=== PATIENT | male | born 1975 | race Caucasian/White ===

== ENCOUNTER 2023-02-13 18:31 | Emergency (ER) | payer OTHER, SELFPAY ==
[2023-02-13 18:39] VITALS: BP 164/106; PULSE 85; RESP 18; O2SAT 99; BMI 28.1
--- NOTE | 2023-02-13 18:46 | ED_ITS ---
Documented by User: Agatha Kendall 02/13/23 19:30 HPI - General Adult General Chief complaint: Dental/Oral Stated complaint: Epitaxis x1 week Time Seen by Provider: 02/13/23 18:42 Source: patient Mode of arrival: walk-in Limitations: no limitations History of Present Illness HPI narrative: 47 year old male presents to the ED for epistaxis. He has been having intermittent episodes for the past week. Denies fever, chills, injury. Denies dizziness, SOB. Denies use of anticoagulants. Denies pain. Reports 7 episodes of bleeding today. Reports noting several clots today. Related Data Allergies Allergy/AdvReac Type Severity Reaction Status Date / Time No Known Drug Allergies Allergy Verified 02/13/23 18:39 Review of Systems ROS Constitutional Denies: fever or chills Ears, nose, mouth, and throat Reports: nose bleeds; Denies: throat pain, neck pain, ear pain or nasal congestion Cardiovascular Denies: chest pain Respiratory Denies: shortness of breath Gastrointestinal Denies: abdominal pain Neurological Denies: headache, weakness in extremities, lack of coordination or dizziness PFSH PFSH Social History Smoking status: Current every day smoker Exam Constitutional Vital Signs, click to edit/add: Last Vital Signs Pulse 85 02/13/23 18:39 Resp 18 02/13/23 18:39 BP 164/106 H 02/13/23 18:39 Pulse Ox 99 02/13/23 18:39 O2 Del Method Room Air 02/13/23 18:39 Common normals: no apparent distress and oriented x3 General appearance: cooperative; not ill appearing [facility] Common normals: normocephalic Face and sinus: normal facial exam Nose: epistaxis (No active epistaxis. Likely site of bleeding noted to right medial nare.) Mouth: oral and palatal mucosa normal, lip normal and tongue normal; no drooling Eye Common normals: conjunctivae normal and no scleral icterus Neck & C-Spine Common normals: supple Chest Chest: symmetrical chest wall rise Respiratory Common normals: normal respiratory effort Cardio Common normals: regular rate Course Vital Signs Vital signs: Vital Signs Pulse Rate 85 02/13/23 18:39 Respiratory Rate 18 02/13/23 18:39 Blood Pressure 164/106 H 02/13/23 18:39 Pulse Oximetry 99 02/13/23 18:39 Oxygen Delivery Method Room Air 02/13/23 18:39 Pulse Rate 85 02/13/23 18:39 Respiratory Rate 18 02/13/23 18:39 Blood Pressure 164/106 H 02/13/23 18:39 Pulse Oximetry 99 02/13/23 18:39 Oxygen Delivery Method Room Air 02/13/23 18:39 Medical Decision Making MDM Narrative Medical decision making narrative: Silver nitrate was utilized to cauterize an area in the right nare. He tolerated the procedure well. The patient did not have active bleeding here in the ED. Laboratory studies were pending. The patient did not want to wait in the ED for his test results. The benefits of staying and risks of leaving were explained to the patient. He declined to stay. He left AMA. Medical Records Medical records reviewed: Yes I reviewed the patient's medical records Lab Data Lab results reviewed: Yes I reviewed the patient's lab results Labs: Lab Results 02/13/23 Range/Units 19:04 WBC 8.4 (4.0-11.0) 10^3/uL RBC 3.82 L (4.70-6.10) 10^6/uL Hgb 13.4 L (14.0-18.0) g/dL Hct 39.5 L (42.0-54.0) % MCV 103.4 H (80.0-94.0) fL MCH 35.1 H (25.9-34.0) pg MCHC 33.9 (29.9-35.2) g/dL RDW 11.4 (11.0-15.0) % Plt Count 130 L (150-450) 10^3/uL MPV 11.4 (9.5-13.5) fL Neut % (Auto) 59.3 (43.0-75.0) % Lymph % (Auto) 24.6 (20.5-60.0) % [place] % (Auto) 14.1 H (1.7-12.0) % Eos % (Auto) 1.2 (0.9-7.0) % Baso % (Auto) 0.6 (0.2-2.0) % Neut # (Auto) 5.0 (1.4-6.5) 10^3/uL Lymph # (Auto) 2.1 (1.2-3.8) 10^3/uL [place] # (Auto) 1.2 H (0.3-0.8) 10^3/uL Eos # (Auto) 0.1 (0.0-0.7) 10^3/uL Baso # (Auto) 0.1 (0.0-0.1) 10^3/uL Abs Immat Gran (auto) 0.02 (0.00-0.03) 10^3/uL Imm/Tot Granulo (auto) 0.2 (0.0-0.5) % PT 11.4 (9.0-11.6) sec INR 1.08 APTT 28.2 (22.3-36.2) sec Sodium 132 L (136-145) mmol/L Potassium 3.6 (3.5-5.1) mmol/L Chloride 95 L (98-107) mmol/L Carbon Dioxide 28.3 (21.0-32.0) mmol/L Anion Gap 12.3 BUN 7.0 (7.0-18.0) mg/dL Creatinine 0.57 L (0.70-1.30) mg/dL Est GFR ( Amer) >60 (>=60) Est GFR (Non-Af Amer) >60 (>=60) BUN/Creatinine Ratio 12.3 Glucose 94 (74-106) mg/dL Calcium 9.4 (8.5-10.1) mg/dL Total Bilirubin 0.6 (0.2-1.0) mg/dL Direct Bilirubin 0.2 (0.0-0.2) mg/dL AST 76 H (15-37) U/L ALT 93 H (16-63) U/L Alkaline Phosphatase 80 (46-116) U/L Total Protein 8.6 H (6.4-8.2) g/dL Albumin 3.7 (3.4-5.0) g/dL Globulin 4.9 g/dL Albumin/Globulin Ratio 0.8 Discharge Plan Discharge Chief Complaint: Dental/Oral Clinical Impression: Left against medical advice, Epistaxis Patient Disposition: Left Against Medical Advice Time of Disposition Decision: 19:19 Condition: Undetermined Mode of Transportation: Private Vehicle Instructions: Against Medical Advice (ED) Stand Alone Forms: Portal Instructions Referrals: Physician,Non-Staff, MD [Primary Care Provider] - 1 week Documented by User: Mack Spence MD 02/13/23 19:37 HPI - General Adult General Chief complaint: Dental/Oral Stated complaint: Epitaxis x1 week Time Seen by Provider: 02/13/23 18:42 Related Data Allergies Allergy/AdvReac Type Severity Reaction Status Date / Time No Known Drug Allergies Allergy Verified 02/13/23 18:39 PFSH PFSH Social History Smoking status: Current every day smoker Exam Constitutional Vital Signs, click to edit/add: Last Vital Signs Pulse 85 02/13/23 18:39 Resp 18 02/13/23 18:39 BP 164/106 H 02/13/23 18:39 Pulse Ox 99 02/13/23 18:39 O2 Del Method Room Air 02/13/23 18:39 Course Vital Signs Vital signs: Vital Signs Pulse Rate 85 02/13/23 18:39 Respiratory Rate 18 02/13/23 18:39 Blood Pressure 164/106 H 02/13/23 18:39 Pulse Oximetry 99 02/13/23 18:39 Oxygen Delivery Method Room Air 02/13/23 18:39 Pulse Rate 85 02/13/23 18:39 Respiratory Rate 18 02/13/23 18:39 Blood Pressure 164/106 H 02/13/23 18:39 Pulse Oximetry 99 02/13/23 18:39 Oxygen Delivery Method Room Air 02/13/23 18:39 Medical Decision Making MDM Narrative Medical decision making narrative: Silver nitrate was utilized to cauterize an area in the right nare. He tolerated the procedure well. The patient did not have active bleeding here in the ED. Laboratory studies were pending. The patient did not want to wait in the ED for his test results. The benefits of staying and risks of leaving were explained to the patient. He declined to stay. He left AMA. Patient's case was discussed with myself and Dr. Al. Patient case was transitioned to Dr. Al at 1905. Lab Data Labs: Lab Results 02/13/23 Range/Units 19:04 WBC 8.4 (4.0-11.0) 10^3/uL RBC 3.82 L (4.70-6.10) 10^6/uL Hgb 13.4 L (14.0-18.0) g/dL Hct 39.5 L (42.0-54.0) % MCV 103.4 H (80.0-94.0) fL MCH 35.1 H (25.9-34.0) pg MCHC 33.9 (29.9-35.2) g/dL RDW 11.4 (11.0-15.0) % Plt Count 130 L (150-450) 10^3/uL MPV 11.4 (9.5-13.5) fL Neut % (Auto) 59.3 (43.0-75.0) % Lymph % (Auto) 24.6 (20.5-60.0) % [place] % (Auto) 14.1 H (1.7-12.0) % Eos % (Auto) 1.2 (0.9-7.0) % Baso % (Auto) 0.6 (0.2-2.0) % Neut # (Auto) 5.0 (1.4-6.5) 10^3/uL Lymph # (Auto) 2.1 (1.2-3.8) 10^3/uL [place] # (Auto) 1.2 H (0.3-0.8) 10^3/uL Eos # (Auto) 0.1 (0.0-0.7) 10^3/uL Baso # (Auto) 0.1 (0.0-0.1) 10^3/uL Abs Immat Gran (auto) 0.02 (0.00-0.03) 10^3/uL Imm/Tot Granulo (auto) 0.2 (0.0-0.5) % PT 11.4 (9.0-11.6) sec INR 1.08 APTT 28.2 (22.3-36.2) sec Sodium 132 L (136-145) mmol/L Potassium 3.6 (3.5-5.1) mmol/L Chloride 95 L (98-107) mmol/L Carbon Dioxide 28.3 (21.0-32.0) mmol/L Anion Gap 12.3 BUN 7.0 (7.0-18.0) mg/dL Creatinine 0.57 L (0.70-1.30) mg/dL Est GFR ( Amer) >60 (>=60) Est GFR (Non-Af Amer) >60 (>=60) BUN/Creatinine Ratio 12.3 Glucose 94 (74-106) mg/dL Calcium 9.4 (8.5-10.1) mg/dL Total Bilirubin 0.6 (0.2-1.0) mg/dL Direct Bilirubin 0.2 (0.0-0.2) mg/dL AST 76 H (15-37) U/L ALT 93 H (16-63) U/L Alkaline Phosphatase 80 (46-116) U/L Total Protein 8.6 H (6.4-8.2) g/dL Albumin 3.7 (3.4-5.0) g/dL Globulin 4.9 g/dL Albumin/Globulin Ratio 0.8 Discharge Plan Discharge Chief Complaint: Dental/Oral Clinical Impression: Left against medical advice, Epistaxis Patient Disposition: Left Against Medical Advice Time of Disposition Decision: 19:19 Condition: Undetermined Mode of Transportation: Private Vehicle Instructions: Against Medical Advice (ED) Stand Alone Forms: Portal Instructions Referrals: Physician,Non-Staff, MD [Primary Care Provider] - 1 week
[2023-02-13] MEDS: SILVER NITRATE APPLICATOR STICK 1 APPLIC TOPICAL (18:53)
[2023-02-13 19:13] LABS: Basophils Absolute Auto 0.1 10^3/uL (0.0-0.1); Basophils Percent Auto 0.6 % (0.2-2.0); Eosinophils Absolute Auto 0.1 10^3/uL (0.0-0.7); Eosinophils Percent Auto 1.2 % (0.9-7.0); Hematocrit 39.5 % (42.0-54.0); Hemoglobin 13.4 g/dL (14.0-18.0); Immature Granulocytes Abs Auto 0.02 10^3/uL (0.00-0.03); Immature Granulocytes Pct Auto 0.2 % (0.0-0.5); Lymphocytes Absolute Auto 2.1 10^3/uL (1.2-3.8); Lymphocytes Percent Auto 24.6 % (20.5-60.0); Mean Corpuscular HGB Conc 33.9 g/dL (29.9-35.2); Mean Corpuscular Hemoglobin 35.1 pg (25.9-34.0); Mean Corpuscular Volume 103.4 fL (80.0-94.0); Mean Platelet Volume 11.4 fL (9.5-13.5); Monocytes Absolute Auto 1.2 10^3/uL (0.3-0.8); Monocytes Percent Auto 14.1 % (1.7-12.0); Neutrophils Percent Auto 59.3 % (43.0-75.0); Platelet Count 130 10^3/uL (150-450); Red Blood Count 3.82 10^6/uL (4.70-6.10); Red Cell Distribution Width 11.4 % (11.0-15.0); White Blood Count 8.4 10^3/uL (4.0-11.0)
--- NOTE | 2023-02-13 19:15 | PC.NURSE ---
Nose bleed off and on. None at present.
--- NOTE | 2023-02-13 19:19 | PC.NURSE ---
Patient wanted to leave and not wait for labs. AMA signed
[2023-02-13 19:24] LABS: Alanine Aminotransferase 93 U/L (16-63); Albumin Globulin Ratio 0.8; Albumin Level 3.7 g/dL (3.4-5.0); Alkaline Phosphatase 80 U/L (46-116); Anion Gap 12.3; Aspartate Amino Transferase 76 U/L (15-37); BUN Creatinine Ratio 12.3; Bilirubin Direct 0.2 mg/dL (0.0-0.2); Bilirubin Total 0.6 mg/dL (0.2-1.0); Calcium 9.4 mg/dL (8.5-10.1); Carbon Dioxide 28.3 mmol/L (21.0-32.0); Chloride 95 mmol/L (98-107); Estimated GFR (African America >60 (>=60); Estimated GFR (Non-African Ame >60 (>=60); Globulin 4.9 g/dL; Glucose 94 mg/dL (74-106); Potassium 3.6 mmol/L (3.5-5.1); Sodium 132 mmol/L (136-145); Total Protein 8.6 g/dL (6.4-8.2)
[2023-02-13 19:26] LABS: INR 1.08; Partial Thromboplastin Time 28.2 sec (22.3-36.2); Prothrombin Time 11.4 sec (9.0-11.6)
--- OUTSIDE RECORDS SUMMARY | 2023-02-14 10:10 | XMS_ITS | CCD ---
Author Name Unknown Address [address] [place] [address] Organization [facility] Care Team Providers Care Thread Spooler Name Role Phone NO FAMILY, PHYSICIAN Primary Care Provider Unava ilable DO Cristina Crooks Emergency Provider Norma Butler Admitting Unavailable Norma Butler Attending Unavailable Norma Butler Admitting Unavailable Norma Butler Attending Unavailable Enrique Cam Referring Unavailable [facility] Primary Care Unavaila ble Cristina Crooks Admitting Unavailable Cristina Crooks Attending Unavailable NO FAMILY, PHYSICIAN Primary Care Unavailable Dr. Enrique Cam Attending Chery vailable Medications Current Medications Medication Drug Class(es) Dates Sig (Normalized) Sig (Original) lisinopril 10 mg oral tablet (1 source) Angiotensin Converting Enzyme Inhibitor Start: 07-17-2022 take 10 mg by mouth once daily Lisinopril Active 10 MG PO Daily July 17, 2022 12:00am Completed/Discontinued Medications Medication Drug Class(es) Dates Sig (Normalized) Sig (Original) diclofenac sodium 1 mg/ml ophthalmic solution (1 source) Nonsteroidal Anti-inflammatory Drug Start: 09-22-2017 End: 09-25-2017 take 1 drop(s) into the eye(s) every six hours Diclofenac Sodium Discontinued 2 DROPS OPHTHALMIC Q6H 5 September 22, 2017 12:00am September 25, 2017 12:02am tobramycin 3 mg/ml ophthalmic solution (1 source) Aminoglycoside Antibacterial Start: 09-22-2017 End: 09-27-2017 take 1 drop(s) into the eye(s) every three hours Tobramycin Discontinued 2 DROPS OPHTHALMIC Q3H 5 September 22, 2017 12:00am September 27, 2017 12:03am Problems Problem Classification Problem Date Documented Da te Episodic/Chronic Cardiac dysrhythmias (1 source) Palpitations; Translations: [Palpitations] Onset: 08-03-2022 Episodic Conditions associated with dizziness or vertigo (1 source) Dizziness and giddiness; Translations: [Dizziness and giddiness] Onset: 07-17-2022 Episodic Essential hypertension (3 sources) Hypertensive disorder; Translations: [Essential (primary) hypertension] Onset: 07-20-2022 07-17-2022 Chronic Nausea and vomiting (1 source) Nausea with vomiting, unspecified; Translations: [Nausea with vomiting, unspecified] Onset: 07-17-2022 Episodic Nonspecific chest pain (1 source) Other chest pain; Translations: [Other chest pain] Onset: 08-03-2022 Episodic Other non-traumatic joint disorders (1 source) Pain in right shoulder; Translations: [Pain in right shoulder] Onset: 08-03-2022 Episodic Results Test Name Value Interpretation Reference Range Facility [facility] echo transthoracicon [facility] echo transthoracic [place] [address] Echocardiogram Signed Patient: Kelly Foss MR#: [id number] 67 : 1975 Acct:[id number] Age/Sex: 46 / M ADM Date: 08/03/22 Loc: Room: Type: [facility] Attending Dr: JESSI Garza APRN Ordering Provider: Norma Butler APRN, NP-C Date of Service: 08/03/2211/18/1415 [facility] echo transthoracic: Primary hypertension;Other chest pain;Heart palpitations Copies to: Norma Butler APRN, NP-C Hassan M Ibrahim, MD, [facility] Weight: 190 lb Performed By: ELEAZAR Teresa BSA: 2.0 m2 BP: 141/100 mmHg HR: 80 Reason For Study: Primary hypertension;Other chest pain;Heart palpitations History: Hyperlipidemia,Hypertensio n,Smoker Interpretation Summary Ejection Fraction = 55-60%. The left ventricular size, thickness and function are normal The left ventricular wall motion is normal. A variety of Doppler measurements indicate impaired left ventricular relaxation, which is associated with grade I/IV or mild diastolic dysfunction. There is no prior echocardiogram noted for this patient. Procedure/Quality: A two-dimensional transthoracic echocardiogram with color flow and Doppler was performed. The study was technically good in quality. There is no prior echocardiogram noted for this patient. Left Ventricle: The left ventricular size, thickness and function are normal. Ejection Fraction = 55-60%. A variety of Doppler measurements indicate impaired left ventricular relaxation, which is associated with grade I/IV or mild diastolic dysfunction. The left ventricular wall motion is normal. Left Atrium: The left atrium appears normal in size. The atrial septum appears normal. Right Atrium: The right atrium appears normal in size. Right Ventricle: The right ventricular size, thickness and function are normal. Aortic Valve: The aortic valve is normal in structure and function. No aortic regurgitation is present. Mitral Valve: The mitral valve is normal in structure and function. There is trace mitral regurgitation. Tricuspid Valve: The tricuspid valve is normal in structure and function. No tricuspid regurgitation. Pulmonic Valve: The pulmonic valve is normal in structure and function. Arteries: The aortic root is normal size. Pericardium/Pleura: No pericardial effusion seen. There is no pleural effusion. IVC/Hepatic Viens: The inferior vena cava is normal in size, with a normal collapsibility index. Miscellaneous: No thrombus, vegetation or mass is seen. Measurements with Normals IVSd: 1.1 cm (0.7-1.1 cm)LVIDd: 4.8 cm (3.7-5.4 cm) LVPWd: 1.1 cm (0.7-1.1 cm)LVIDs: 3.1 cm (2.3-3.6 cm) LA dimension: 3.7 cm (2.3-4.0 cm)Ao root diam: 3.2 cm(2.0-3.6 cm) asc Aorta Diam: 3.2 cm(2.1-3.4cm) Doppler with Normals RVSP(TR): 23.4 mmHg (18-35mmHg) MV E max casper: 72.0 cm/sec(0.8-1.3m/s) MV A max casper: 82.3 cm/sec(0.0-0.0m/s) MV E/A: 0.88 (<1.5) MMode/2D Measurements Calculations RVDd: 2.8 cm FS: 35.1 % Ao root area: 7.8 [id number] ap4: 8.1 cm TAPSE: 2.1 cm EDV(Teich): EDV(MOD-sp4): RV S Casper: 108.0 ml 104.0 ml 21.4 cm/sec ESV(Teich): LVLs ap4: 6.7 cm 38.5 ml ESV(MOD-sp4): EF(Teich): 64.3 % 35.7 ml EF(MOD-sp4): 65.7 % __ SV(MOD-sp4): LAV(MOD-sp4): LA A2 area: 15.1 cm2 68.3 ml 39.9 ml LAV(MOD-sp2): LA A4 area: 16.5 cm2 31.7 ml LA length (vol): 5.5 cm LA vol: 38.2 ml LA vol index: 19.1 ml/m2 Doppler Measurements Calculations MV max P.0 mmHg E/E' lat: MR max casper: TV max P.5 228.5 cm/sec 18.0 mmHg E/E' med: MR max P.1 mmHg 8.0 __ TR max casper: 214.8 cm/sec TR max P.4 mmHg RAP systole: 5.0 mmHg Transcribed By: SCV Performed At: 08/03/22 1427 Signed By: Enrique Cam MD, FACC 08/03/22 1538 Normal [facility] STR cardiac stress/regularon 08-03-2022 STR cardiac stress/regular [facility] [address] Cardiac Stress Test Draft Patient: Kelly Foss MR#: [id number] 67 : 1975 Acct:[id number] Age/Sex: 46 / M ADM Date: 08/03/22 Loc: Room: Type: [facility] Attending Dr: Norma R. Butler WAREHOUSE PERSON, NET UI DEVELOPER-C Copies to: Ordering Provider: Norma Butler APRN, NP-C Date of Service: 08/03/22 STR/STR cardiac stress/regular: Primary hypertension;Other chest pain;Heart palpitations ORDERED BY: JESSI Broussard INDICATIONS: A 46-year-old patient with chest pain. Resting EKG revealed normal sinus rhythm with a rate of 80 beats per minute. Resting blood pressure 140/100 mmHg. The patient was exercised on a Mikie protocol for 7 minutes, achieving maximum heart rate 157 beats per minute, which represented 89% of predicted maximum heart rate and workload of 8.5 METS. Blood pressure chacha to 120/100 mmHg. The test ended due to legs fatigue. During exercise, no ischemic EKG changes were noted. The patient had no symptoms of chest pain, and there were no cardiac arrhythmias induced by exercise. The patient demonstrated reasonable heart rate response to exercise with normal heart rate recovery and achievement of Hurst treadmill score of 7+, which is favorable. CONCLUSION: 1. Normal exercise tolerance test after completing 7 minutes of Mikie protocol, achieving 89% of predicted maximum heart rate and a workload of 8.5 METS. 2. Appropriate hemodynamic response to exercise with normal heart rate recovery and achievement of Hurst treadmill score of 7+, which is favorable. No previous studies are available for comparison. Transcribed By: NTS 08/04/22 1228 Dictated By: Enrique Cam MD, [facility] 08/03/22 1549 Signed By: [facility] XR shoulder RT min 2V*on XR shoulder RT min 2V* [place] [address] XRay Report Signed Patient: Kelly Foss MR#: [id number] 67 : 1975 Acct:[id number] Age/Sex: 46 / M ADM Date: 08/03/22 Loc: Room: Type: [facility] Attending Dr: JESSI Garza APRN Copies to: Norma Butler APRN, NP-C Ordering Provider: Norma Butler APRN, NP-C Date of Service: 08/03/22 XR/XR shoulder RT min 2V*: Acute pain of right shoulder 3 views right shoulder plain film HISTORY: Right shoulder pain for one half months. COMPARISON: None ACUTE FINDINGS: None DEGENERATIVE CHANGE: Unremarkable SOFT TISSUE FINDINGS: Unremarkable JOINT EFFUSION: None POSTOP CHANGES: None BONY MINERALIZATION: Adequate XR/XR shoulder RT min 2V* IMPRESSION: Unremarkable exam Impression dictated by: Mack Matias M.D.08/03/2022 4:23 PM Dictation Location: [place] [address] Transcribed By: [facility] 08/03/22 1623 Dictated By: Mack Matias DO 08/03/22 1622 Signed By: 08/03/22 1623 Normal [facility] Lipid Panelon 07-20-2022 Cholesterol [Mass/Vol] 205 mg/dL High 140-200 [facility] Comment on above: Order Comment: Reaso n for Exam Primary hypertension Result Comment: Chol less than 200 mg/dl low risk Chol 201-239 mg/dl borderline risk Chol 240 mg/dl and greater high risk Performed By: #### P T, HS TROP, CMP, DIFF CBC, BNP, PTT #### [facility] [address] [place] [id number] [facility] Cholesterol in HDL [Mass/Vol] 55 mg/dL Normal 29-71 [facility] Comment on above: Order Comment: Reaso n for Exam Primary hypertension Result Comment: HDL CHOL ATP-III CLASSIFICATION Cardiovascular Risk HDL > or equal to 60 mg/dL LOW HDL < 40 mg/dL HIGH Performed By: #### P T, HS TROP, CMP, DIFF CBC, BNP, PTT #### [facility] [address] [place] [id number] [facility] Cholesterol.total/Chol esterol in HDL [Mass ratio] 3.7 {ratio} Normal <5.0 [facility] Comment on above: Order Comment: Reaso n for Exam Primary hypertension Result Comment: PERF ORMED BY: [place] [address] PATHOLOGIST MICROBIOLOGY LAB MANAGER KELBY RODRÍGUEZ M.D. Performed By: #### P T, HS TROP, CMP, DIFF CBC, BNP, PTT #### [facility] [address] [place] [id number] [facility] LDL Cholesterol,Calculated 139 mg/dL High 0-100 [facility] Comment on above: Order Comment: Reaso n for Exam Primary hypertension Result Comment: LDL ATP III CLASSIFICATION LDL less than 100 mg/dL Optimal LDL 100-129 mg/dL Near or above optimal LDL 130-159 mg/dL Borderline high LDL 160-189 mg/dL High LDL greater than 189 mg/dL Very high Performed By: #### P T, HS TROP, CMP, DIFF CBC, BNP, PTT #### [facility] [address] Triglyceride w/Reflex 57 mg/dL Normal 0-149 [facility] Comment on above: Order Comment: Reaso n for Exam Primary hypertension Result Comment: TRIG ATP III CLASSIFICATION TRIG less than 150 mg/dL Normal TRIG 150-199 mg/dL Borderline high TRIG 200-500 mg/dL High TRIG greater than 500 mg/dL Very high Standard traceable to the Center for Disease Conrtrol and Prevention (CDC) test method. Performed By: #### P T, HS TROP, CMP, DIFF CBC, BNP, PTT #### [facility] [address] VLDL CHOLESTEROL 11 mg/dL Normal [facility] Comment on above: Order Comment: Reaso n for Exam Primary hypertension Performed By: #### P T, HS TROP, CMP, DIFF CBC, BNP, PTT #### [facility] [address] Activated partial thrombopla stin time (aPTT) in platelet poor plasma by coagulation aOrdered By: Cristina Crooks on 07-17-2022 aPTT Coag (PPP) [Time] 34.8 s 25.1-36.5 [facility] Alanine aminotransferase [En zymatic activity/volume] in Serum or PlasmaOrdered By: Cristina Crooks on 07-17-2022 ALT [Catalytic activity/Vol] 53 U/L 7-52 [facility] Albumin [Mass/volume] in Ser um or Plasma by Bromocresol green (BCG) dye binding methoOrdered By: Cristina Crooks on 07-17-2022 Albumin BCG dye [Mass/Vol] 4.1 g/dL 3.5-5.7 [facility] Alkaline phosphatase [Enzyma tic activity/volume] in Serum or PlasmaOrdered By: Cristina Crooks on 07-17-2022 ALP [Catalytic activity/Vol] 89 U/L 34-104 [facility] Aspartate aminotransferase [ Enzymatic activity/volume] in Serum or PlasmaOrdered By: Cristina Crooks on 07-17-2022 AST [Catalytic activity/Vol] 89 U/L 13-39 [facility] B-Type Natriuretic Peptideon 07-17-2022 Natriuretic peptide B (Bld) [Mass/Vol] 70.0 pg/mL Normal 5-100 [facility] Comment on above: Result Comment: PERF ORMED BY: [place] [address] [place] [address] PATHOLOGIST MICROBIOLOGY LAB MANAGER KELBY RODRÍGUEZ M.D. Performed By: #### P T, HS TROP, CMP, DIFF CBC, BNP, PTT #### [facility] [address] Band form neutrophils/100 WB C Manual cnt (Bld)Ordered By: Cristina Crooks on 07-17-2022 Band form neutrophils/100 WBC (Bld) 1 % 0-5 [facility] Basophils Auto (Bld) [#/Vol] Ordered By: Cristina Crooks on 07-17-2022 Basophils (Bld) [#/Vol] N/A [facility] Basophils/100 WBC Auto (Bld) Ordered By: Cristina Crooks on 07-17-2022 Basophils/100 WBC (Bld) N/A [facility] Bilirubin.total [Mass/volume ] in Serum or PlasmaOrdered By: Cristina Crooks on 07-17-2022 Bilirubin [Mass/Vol] 1.5 mg/dL 0.3-1.0 [facility] Comment on above: Samples from patient s who have taken Naproxen have shown spurious elevation in Total Bilirubin levels. A metabolite of Naproxen, O-desmethylnaproxen, has been shown to interfere with the Erwin method for measuring Total Bilirubin. Calcium [Mass/volume] in Ser um or PlasmaOrdered By: Cristina Crooks on 07-17-2022 Calcium [Mass/Vol] 9.7 mg/dL 8.6-10.3 [facility] Carbon dioxide, total [Moles /volume] in Serum or PlasmaOrdered By: Cristina Crooks on 07-17-2022 CO2 [Moles/Vol] 29.3 mmol/L 21.0-31.0 [facility] Chloride [Moles/volume] in S messi or PlasmaOrdered By: Cristina Crooks on 07-17-2022 Chloride [Moles/Vol] 98 mmol/L 98-107 [facility] Comprehensive Metabolic Pane nayla 07-17-2022 Albumin [Mass/Vol] 4.1 g/dL Normal 3.5-5.7 [facility] Comment on above: Performed By: #### P T, HS TROP, CMP, DIFF CBC, BNP, PTT #### [address] Albumin/Globulin [Mass ratio] 0.9 {ratio} Normal [facility] Comment on above: Performed By: #### P T, HS TROP, CMP, DIFF CBC, BNP, PTT #### [address] ALP [Catalytic activity/Vol] 89 U/L Normal 34-104 [facility] Comment on above: Result Comment: PERF ORMED BY: [place] [address] PATHOLOGIST MICROBIOLOGY LAB MANAGER KELBY RODRÍGUEZ M.D. Performed By: #### P T, HS TROP, CMP, DIFF CBC, BNP, PTT #### [address] ALT [Catalytic activity/Vol] 53 U/L High 7-52 [facility] Comment on above: Performed By: #### P T, HS TROP, CMP, DIFF CBC, BNP, PTT #### [address] Anion gap [Moles/Vol] 11.4 mmol/L Normal 6.0-15.0 [facility] Comment on above: Performed By: #### P T, HS TROP, CMP, DIFF CBC, BNP, PTT #### [address] AST [Catalytic activity/Vol] 89 U/L High 13-39 [facility] Comment on above: Performed By: #### P T, HS TROP, CMP, DIFF CBC, BNP, PTT #### [facility] [address] Bilirubin [Mass/Vol] 1.5 mg/dL High 0.3-1.0 [facility] Comment on above: Result Comment: Samp les from patients who have taken Naproxen have shown spurious elevation in Total Bilirubin levels. A metabolite of Naproxen, O-desmethylnaproxen, has been shown to interfere with the Jendrassik-Grof method for measuring Total Bilirubin. Performed By: #### P T, HS TROP, CMP, DIFF CBC, BNP, PTT #### [facility] [address] Calcium [Mass/Vol] 9.7 mg/dL Normal 8.6-10.3 [facility] Comment on above: Performed By: #### P T, HS TROP, CMP, DIFF CBC, BNP, PTT #### [facility] [address] Chloride [Moles/Vol] 98 mmol/L Normal 98-107 [facility] Comment on above: Performed By: #### P T, HS TROP, CMP, DIFF CBC, BNP, PTT #### [address] CO2 [Moles/Vol] 29.3 mmol/L Normal 21.0-31.0 [facility] Comment on above: Performed By: #### P T, HS TROP, CMP, DIFF CBC, BNP, PTT #### [facility] [address] Creatinine [Mass/Vol] 0.54 mg/dL Low 0.70-1.30 [facility] Comment on above: Performed By: #### P T, HS TROP, CMP, DIFF CBC, BNP, PTT #### [facility] [address] [place] [address] [place] GFR/1.73 sq M.predicted MDRD (S/P/Bld) [Vol rate/Area] mL/min/{1.73_m2} [facility] Comment on above: Performed By: #### P T, HS TROP, CMP, DIFF CBC, BNP, PTT #### [facility] [address] Globulin (S) [Mass/Vol] 4.8 g/dL [facility] Comment on above: Performed By: #### P T, HS TROP, CMP, DIFF CBC, BNP, PTT #### [facility] [address] Glucose [Mass/Vol] 142 mg/dL High 70-100 [facility] Comment on above: Result Comment: [place] Glucose Reference Range is dependent on time and content of last meal. Glucose of more than 200 mg/dL in a nonstressed, ambulatory subject supports the diagnosis of Diabetes Mellitus. ADA recommended reference range Performed By: #### P T, HS TROP, CMP, DIFF CBC, BNP, PTT #### [address] Potassium [Moles/Vol] 3.7 mmol/L Normal 3.5-5.1 [facility] Comment on above: Performed By: #### P T, HS TROP, CMP, DIFF CBC, BNP, PTT #### [address] Protein [Mass/Vol] 8.9 g/dL Normal 6.4-8.9 [facility] Comment on above: Performed By: #### P T, HS TROP, CMP, DIFF CBC, BNP, PTT #### [facility] [address] Sodium [Moles/Vol] 135 mmol/L Low 136-145 [facility] Comment on above: Performed By: #### P T, HS TROP, CMP, DIFF CBC, BNP, PTT #### [facility] [address] Urea nitrogen [Mass/Vol] 7 mg/dL Normal 7-25 [facility] Comment on above: Performed By: #### P T, HS TROP, CMP, DIFF CBC, BNP, PTT #### [facility] [address] Creatinine [Mass/volume] in Serum or PlasmaOrdered By: Cristina Crooks on 07-17-2022 Creatinine [Mass/Vol] 0.54 mg/dL 0.70-1.30 [facility] Diff and CBCon 07-17-2022 Band form neutrophils/100 WBC (Bld) 1 % Normal 0-5 [facility] Comment on above: Performed By: #### P T, HS TROP, CMP, DIFF CBC, BNP, PTT #### [facility] [address] Erythrocyte distribution width (RBC) [Ratio] 12.6 % Normal 12.0-14.8 [facility] Comment on above: Performed By: #### P T, HS TROP, CMP, DIFF CBC, BNP, PTT #### [facility] [address] Giant Platelet Tally 2 /100{WBC} Normal [facility] Comment on above: Result Comment: PERF ORMED BY: [place] [address] PATHOLOGIST MICROBIOLOGY LAB MANAGER KELBY RODRÍGUEZ M.D. Performed By: #### P T, HS TROP, CMP, DIFF CBC, BNP, PTT #### [facility] [address] Hematocrit (Bld) [Volume fraction] 41.7 % Normal 38.8-50.0 [facility] Comment on above: Performed By: #### P T, HS TROP, CMP, DIFF CBC, BNP, PTT #### [facility] [address] Hemoglobin (Bld) [Mass/Vol] 14.4 g/dL Normal 13.0-17.0 [facility] Comment on above: Performed By: #### P T, HS TROP, CMP, DIFF CBC, BNP, PTT #### [facility] [address] Lymphocytes/100 WBC (Bld) 11 % Low 18-42 [facility] Comment on above: Performed By: #### P T, HS TROP, CMP, DIFF CBC, BNP, PTT #### [facility] [address] Macrocytosis Slight Normal [facility] Comment on above: Performed By: #### P T, HS TROP, CMP, DIFF CBC, BNP, PTT #### [address] MCH (RBC) [Entitic mass] 35.2 pg Normal 27.5-35.2 [facility] Comment on above: Performed By: #### P T, HS TROP, CMP, DIFF CBC, BNP, PTT #### [address] MCV (RBC) [Entitic vol] 101.8 fL High 83.5-101 [facility] Comment on above: Performed By: #### P T, HS TROP, CMP, DIFF CBC, BNP, PTT #### [address] Mean Corpuscular HGB Conc 34.6 g/dL Normal 32.5-35.6 [facility] Comment on above: Performed By: #### P T, HS TROP, CMP, DIFF CBC, BNP, PTT #### [address] Monocytes/100 WBC (Bld) 20.06 % High 0.00-20.00 [facility] Comment on above: Result Comment: For adults in ED, MDW > 20.0 may be associated with a higher risk of sepsis during the first 12 hrs of hospital admission Performed By: #### P T, HS TROP, CMP, DIFF CBC, BNP, PTT #### [address] Monocytes/100 WBC (Bld) 13 % High 2-11 [facility] Comment on above: Performed By: #### P T, HS TROP, CMP, DIFF CBC, BNP, PTT #### [address] Platelet Estimate Decreased Normal Normal [facility] Comment on above: Performed By: #### P T, HS TROP, CMP, DIFF CBC, BNP, PTT #### [address] Platelet mean volume (Bld) [Entitic vol] 9.6 fL Normal 6.6-10.1 [facility] Comment on above: Performed By: #### P T, HS TROP, CMP, DIFF CBC, BNP, PTT #### [address] Platelets (Bld) [#/Vol] 92 10*3/uL Low 150-450 [facility] Comment on above: Performed By: #### P T, HS TROP, CMP, DIFF CBC, BNP, PTT #### [address] RBC (Bld) [#/Vol] 4.10 10*6/uL Normal 3.90-5.60 [facility] Comment on above: Performed By: #### P T, HS TROP, CMP, DIFF CBC, BNP, PTT #### [address] Segmented neutrophils/100 WBC (Bld) 76 % High 50-70 [facility] Comment on above: Performed By: #### P T, HS TROP, CMP, DIFF CBC, BNP, PTT #### [address] Stomatocytes Slight Normal [facility] Comment on above: Performed By: #### P T, HS TROP, CMP, DIFF CBC, BNP, PTT #### [address] Toxic Vacuolation Slight Normal [facility] Comment on above: Performed By: #### P T, HS TROP, CMP, DIFF CBC, BNP, PTT #### [address] WBC (Bld) [#/Vol] 5.3 10*3/uL Normal 4.1-10.5 [facility] Comment on above: Performed By: #### P T, HS TROP, CMP, DIFF CBC, BNP, PTT #### [facility] [address] [place] [address] [place] ECG 12 lead ECGon 07-17-2022 ECG 12 lead ECG [facility] [address] [place] [address] [place] [address] Electrocardiograph Report Signed Patient: Kelly Foss MR#: [id number] 67 : 1975 Acct:[id number] Age/Sex: 46 / M ADM Date: 07/17/22 Loc: ER Room: Type: [facility] ER Attending Dr: Ordering Provider: Cristina Crooks DO Date of Service: 07/17/22 ECG/ECG 12 lead ECG: Recheck/Abnormal Lab/Rx Copies to: Test Reason : Blood Pressure : / mmHG Vent. Rate : 096 BPM Atrial Rate : 096 BPM P-R Int : 146 ms QRS Dur : 082 ms QT Int : 362 ms P-R-T Axes : -04 -14 -01 degrees QTc Int : 457 ms Normal sinus rhythm Normal ECG When compared with ECG of 31-OCT-2012 21:16, Questionable change in QRS axis Non-specific change in ST segment in Inferior leads T wave inversion now evident in Inferior leads QT has lengthened Confirmed by Thee Ryan DO ([id number]) on 07/17/2022 3:49:25 PM Referred By: Electronically Signed By:Thee Ryan DO Transcribed By: MUS Signed By Thee Ryan DO 3 1549 Normal [facility] Eosinophils Auto (Bld) [#/Vo l]Ordered By: Cristina Crooks on 07-17-2022 Eosinophils (Bld) [#/Vol] N/A [facility] Eosinophils/100 WBC Auto (Bl d)Ordered By: Cristina Crooks on 07-17-2022 Eosinophils/100 WBC (Bld) N/A [facility] Erythrocyte distribution wid th Auto (RBC) [Ratio]Ordered By: Cristina Crooks on 07-17-2022 Erythrocyte distribution width (RBC) [Ratio] 12.6 % 12.0-14.8 [facility] Giant platelets/100 leukocyt es [Ratio] in Blood by Manual countOrdered By: Cristina Crooks on 07-17-2022 Giant platelets/100 WBC Manual cnt (Bld) [Ratio] 2 /100{WBC} [facility] Globulin Calc (S) [Mass/Vol] Ordered By: Cristina Crooks on 07-17-2022 Globulin (S) [Mass/Vol] 4.8 g/dL [facility] Glucose [Mass/volume] in Ser um or PlasmaOrdered By: Cristina Crooks on 07-17-2022 Glucose [Mass/Vol] 142 mg/dL 70-100 [facility] Comment on above: ADA recommended refe rence rangeRandom Glucose Reference Range is dependent on time and content of last meal. Glucose of more than 200 mg/dL in a nonstressed, ambulatory subject supports the diagnosis of Diabetes Mellitus. Hematocrit Auto (Bld) [Volum e fraction]Ordered By: Cristina Coroks on 07-17-2022 Hematocrit (Bld) [Volume fraction] 41.7 % 38.8-50.0 [facility] Hemoglobin [Mass/volume] in BloodOrdered By: Cristina Crooks on 07-17-2022 Hemoglobin (Bld) [Mass/Vol] 14.4 g/dL 13.0-17.0 [facility] Laboratory - CoagulationOrde red By: Cristina Crooks on 07-17-2022 PT Coag (PPP) [Time] 13.7 s 9.0-12.9 [facility] Leukocytes [#/volume] correc katie for nucleated erythrocytes in Blood by Automated counOrdered By: Cristina Crooks on 07-17-2022 WBC corrected for nucl RBC Auto (Bld) [#/Vol] 5.3 10*3/uL 4.1-10.5 [facility] Lymphocytes Auto (Bld) [#/Vo l]Ordered By: Cristina Crooks on 07-17-2022 Lymphocytes (Bld) [#/Vol] N/A [facility] Lymphocytes/100 WBC Auto (Bl d)Ordered By: Cristina Crooks on 07-17-2022 Lymphocytes/100 WBC (Bld) N/A [facility] Lymphocytes/100 WBC Manual c nt (Bld)Ordered By: Cristina Crooks on 07-17-2022 Lymphocytes/100 WBC (Bld) 11 % 18-42 [facility] MCH Auto (RBC) [Entitic mass ]Ordered By: Cristina Crooks on 07-17-2022 MCH (RBC) [Entitic mass] 35.2 pg 27.5-35.2 [facility] MCHC Auto (RBC) [Mass/Vol]Or dered By: Cristina Crooks on 07-17-2022 MCHC (RBC) [Mass/Vol] 34.6 g/dL 32.5-35.6 [facility] MCV Auto (RBC) [Entitic vol] Ordered By: Cristina Crooks on 07-17-2022 MCV (RBC) [Entitic vol] 101.8 fL 83.5-101 [facility] Macrocytes LM Ql (Bld)Ordere d By: Cristina Crooks on 07-17-2022 Macrocytes Ql (Bld) Slight [facility] Monocyte distribution width [Entitic volume] in Blood by AutomatedOrdered By: Cristina Crooks on 07-17-2022 Monocyte distribution width Auto (Bld) [Entitic vol] 20.06 % 0.00-20.00 [facility] Comment on above: For adults in ED, MD W > 20.0 may be associated with a higher risk of sepsis during the first 12 hrs of hospital admission Monocytes Auto (Bld) [#/Vol] Ordered By: Cristina Crooks on 07-17-2022 Monocytes (Bld) [#/Vol] N/A [facility] Monocytes/100 WBC Auto (Bld) Ordered By: Cristina Crooks on 07-17-2022 Monocytes/100 WBC (Bld) N/A [facility] Monocytes/100 WBC Manual cnt (Bld)Ordered By: Cristina Crooks on 07-17-2022 Monocytes/100 WBC (Bld) 13 % 2-11 [facility] Natriuretic peptide B [Mass/ Vol]Ordered By: Cristina Crooks on 07-17-2022 Natriuretic peptide B (Bld) [Mass/Vol] 70.0 pg/mL 5-100 [facility] Neutrophils Auto (Bld) [#/Vo l]Ordered By: Cristina Crooks on 07-17-2022 Neutrophils (Bld) [#/Vol] N/A [facility] Neutrophils/100 WBC Auto (Bl d)Ordered By: Cristina Crooks on 07-17-2022 Neutrophils/100 WBC (Bld) N/A [facility] No Panel InformationOrdered By: Cristina Crooks on 07-17-2022 Estimated GFR (CKD-EPI) > 60.0 mL/Min [facility] Creatinine Clearance (Chem N/A [facility] Nucleated erythrocytes [Pres ence] in Blood by Automated countOrdered By: Cristina Crooks on 07-17-2022 Nucleated RBC Auto Ql (Bld) N/A [facility] Partial Thromboplastin Timeo n 07-17-2022 aPTT Coag (Bld) [Time] 34.8 s Normal 25.1-36.5 [facility] Comment on above: Result Comment: PERF ORMED BY: [facility] [address] [place] [address] PATHOLOGIST MICROBIOLOGY LAB MANAGER KELBY RODRÍGUEZ M.D. Performed By: #### P T, HS TROP, CMP, DIFF CBC, BNP, PTT #### [facility] [address] Platelet adequacy [Presence] in Blood by Light microscopyOrdered By: Cristina Crooks on 07-17-2022 Platelets LM Ql (Bld) Decreased Normal [facility] Platelet mean volume Auto (B ld) [Entitic vol]Ordered By: Cristina Crooks on 07-17-2022 Platelet mean volume (Bld) [Entitic vol] 9.6 fL 6.6-10.1 [facility] Platelet morphology finding [Identifier] in BloodOrdered By: Cristina Crooks on 07-17-2022 Platelet morphology finding Nom (Bld) N/A [facility] Platelet poor plasma interna tional normalized ratio (INR) by coagulation assay (relatOrdered By: Cristina Crooks on 07-17-2022 INR Coag (PPP) [Relative time] 1.2 {INR} [facility] Comment on above: INR Therapeutic Rang e A) Pre- and Peroperative OAT started two weeks before surgery. NOT HIP SURGERY: 1.5 - 2.5 HIP SURGERY: 2 - 3B) Primary and secondary prevention of venous THROMBOSIS: 2 - 3C) Active venous thrombosis, pulmonary embolismand prevention of recurrent venous thrombosis: 2 - 3D) Prevention of arterial thromboembolismincluding patients with mechanical heart valves: 3 - 4.5 Platelets Auto (Bld) [#/Vol] Ordered By: Cristina Crooks on 07-17-2022 Platelets (Bld) [#/Vol] 92 10*3/uL 150-450 [facility] Potassium [Moles/volume] in Serum or PlasmaOrdered By: Cristina Crooks on 07-17-2022 Potassium [Moles/Vol] 3.7 mmol/L 3.5-5.1 [facility] Protein [Mass/volume] in Ser um or PlasmaOrdered By: Cristina Crooks on 07-17-2022 Protein [Mass/Vol] 8.9 g/dL 6.4-8.9 [facility] Prothrombin Time INRon 07-17 INR Coag (PPP) [Relative time] 1.2 {INR} Normal [facility] Comment on above: Result Comment: INR Therapeutic Range A) Pre- and Peroperative OAT started two weeks before surgery. NOT HIP SURGERY: 1.5 - 2.5 HIP SURGERY: 2 - 3 B) Primary and secondary prevention of venous THROMBOSIS: 2 - 3 C) Active venous thrombosis, pulmonary embolism and prevention of recurrent venous thrombosis: 2 - 3 D) Prevention of arterial thromboembolism including patients with mechanical heart valves: 3 - 4.5 Performed By: #### P T, HS TROP, CMP, DIFF CBC, BNP, PTT #### [facility] [address] PT Coag (PPP) [Time] 13.7 s High 9.0-12.9 [facility] Comment on above: Performed By: #### P T, HS TROP, CMP, DIFF CBC, BNP, PTT #### [facility] [address] RBC Auto (Bld) [#/Vol]Ordere d By: Cristina Crooks on 07-17-2022 RBC (Bld) [#/Vol] 4.10 10*6/uL 3.90-5.60 [facility] RBC morphologyOrdered By: Me zheng Crooks on 07-17-2022 RBC morphology finding Nom (Bld) N/A [facility] Red blood cell stomatocyte d etectionOrdered By: Cristina Crooks on 07-17-2022 Stomatocytes LM Ql (Bld) Slight [facility] Segmented neutrophils/100 WB C Manual cnt (Bld)Ordered By: Cristina Crooks on 07-17-2022 Segmented neutrophils/100 WBC (Bld) 76 % 50-70 [facility] Serum or plasma albumin/glob ulin mass ratioOrdered By: Cristina Crooks on 07-17-2022 Albumin/Globulin [Mass ratio] 0.9 {ratio} [facility] Serum or plasma anion gap de terminationOrdered By: Cristina Crooks on 07-17-2022 Anion gap [Moles/Vol] 11.4 mmol/L 6.0-15.0 [facility] Sodium [Moles/volume] in Ser um or PlasmaOrdered By: Cristina Crooks on 07-17-2022 Sodium [Moles/Vol] 135 mmol/L 136-145 [facility] Toxic leukocyte vacuolation detectionOrdered By: Cristina Crooks on 07-17-2022 Leukocyte toxic vacuoles LM Ql (Bld) [facility] Troponin I High Sensitivityo n 07-17-2022 Troponin I High Sensitivity 5.0 pg/mL Normal 0.0-20.0 [facility] Comment on above: Result Comment: PERF ORMED BY: [place] [address] PATHOLOGIST MICROBIOLOGY LAB MANAGER KELBY RODRÍGUEZ M.D. Performed By: #### P T, HS TROP, CMP, DIFF CBC, BNP, PTT #### [facility] [address] [place] [address] Troponin I High Sensitivity 5.9 pg/mL Normal 0.0-20.0 [facility] Comment on above: Result Comment: PERF ORMED BY: [place] [address] PATHOLOGIST MICROBIOLOGY LAB MANAGER KELBY RODRÍGUEZ M.D. Performed By: #### P T, HS TROP, CMP, DIFF CBC, BNP, PTT #### [facility] [address] [place] [address] [place] Troponin I.cardiac [Mass/vol ume] in Serum or Plasma by Detection limit <= 0.01 ng/Ordered By: Cristina Crooks on 07-17-2022 Troponin I.cardiac DL <= 0.01 ng/mL [Mass/Vol] 5.0 pg/mL 0.0-20.0 [facility] Urea nitrogen [Mass/volume] in Serum or PlasmaOrdered By: Cristina Crooks on 07-17-2022 Urea nitrogen [Mass/Vol] 7 mg/dL 7-25 [facility] WBC Auto (Bld) [#/Vol]Ordere d By: Cristina Crooks on 07-17-2022 WBC (Bld) [#/Vol] 5.3 10*3/uL 4.1-10.5 [facility] XR chest 2V*on 07-17-2022 XR chest 2V* [facility] [place] [address] XRay Report Signed Patient: Kelly Foss MR#: [id number] 67 : 1975 Acct:[id number] Age/Sex: 46 / M ADM Date: 07/17/22 Loc: ER Room: Type: [facility] ER Attending Dr: Copies to: Cristina Crooks DO Ordering Provider: Cristina Crooks DO Date of Service: 07/17/22 XR/XR chest 2V*: Recheck/Abnormal Lab/Rx PA AND LATERAL CHEST: CLINICAL HISTORY: Lightheadedness, diaphoresis and hypertension. COMPARISON: 10/31/2012 There is no focal parenchymal consolidation, effusion or pneumothorax. The cardiac, hilar and mediastinal silhouettes are within normal limits. There is no vascular congestion. The visualized bony thorax is intact. XR/XR chest 2V* IMPRESSION: NO ACUTE CARDIOPULMONARY ABNORMALITY. Impression dictated by: Aracelis Aleman M.D.07/17/2022 2:28 PM Dictation Location: [place] [address] Transcribed By: [facility] 07/17/22 1428 Dictated By: Aracelis Aleman MD 07/17/22 1427 Signed By: 07/17/22 1428 Normal [facility] Vital Signs Date Time Vital Sign Value Performing Clinician Faci lity 07-17-2022 17:09-0400 Diastolic blood pressure 100 mm[Hg] PHYSICIAN NO [facility] 07-17-2022 17:09-0400 Heart rate 99 /min PHYSICIAN NO [facility] 07-17-2022 17:09-0400 Respiratory rate 18 /min PHYSICIAN NO [facility] 07-17-2022 17:09-0400 Systolic blood pressure 180 mm[Hg] PHYSICIAN NO [facility] 07-17-2022 15:44-0400 SaO2% (BldA) [Mass fraction] 97 % PHYSICIAN NO [facility] 07-17-2022 13:15-0400 Body temperature 97.9 [degF] PHYSICIAN NO [facility] Encounters Encounter Date Encounter Type Care Provider Facility Start: 08-03-[address] Enrique Cam Facility:[id number] Start: 08-03-2022 End: 08-03-2022 ambulatory Norma Butler Facility:[facility] Start: 07-20-2022 End: 07-20-2022 ambulatory Norma Butler Facility:[facility] Start: 07-17-2022 End: 07-17-2022 Emergency department patient visit Cristina Crooks Facility:[facility] Start: 07-17-2022 End: 07-17-2022 Emergency department patient visit PHYSICIAN NO [facility] Work Phone: Procedures Date Procedure Procedure Detail Performing Clinician Start: 07-17-2022 Plain chest X-ray PHYSI GUERRERO NO FAMILY Plan of Treatment Date Care Activity Detail Author Patient referral [facility] Work Phone: Payers Date Payer Category Payer Self-pay [id number] 2022 Unknown [id number] 1975 Unknown [id number] 1975 Unknown [id number] .. [id number] Medicaid [id number] Unknown Rob BC/BS [id number] Unknown [id number] Unknown [id number] Unknown [id number] Social History Date Type Detail Facility Start: 07-17-2022 Tobacco smoking stat [facility] Smoker (finding) [facility] Start: 1975 Sex Assigned At Male [facility] Evaluation note Note Date & Type Note Facility Evaluation note No assessment information availa ble [facility] Work Phone: Hospital Discharge instructions Note Date & Type Note Facility Hospital Discharge instructions Additional Instructions Today you are seen after episode of lightheadedness and sweatiness at home with elevated blood pressure. We discussed your labs and imaging. We discussed that I did recommend that you stay in the hospital for further cardiac monitoring and evaluation although you did not want to stay in the hospital. We discussed that you are leaving against medical advise at this time although you can return the emergency department for further evaluation and treatment at any time. We discussed that we did schedule you a follow-up appointment with family health services at 10:15 AM on 07/20/2022. Please go to your appointment as scheduled. I did write you a written prescription for lisinopril 10 mg to be taken once daily up until your appointment. If you have any issues with this medication you can stop taking this medication until you are evaluated on Saturday by your primary care provider. You can return to the emergency department as needed or if your symptoms worsen, including but not limited to, fevers, chills, chest pain, shortness of breath, numbness, tingling, worsening headache, blurred vision, abdominal pain, nausea, vomiting, or any other concerns. [facility] Work Phone: Chief Complaint and Reason for Visit Chief Complaint bp issues Advance Directives No Advanced Directives Records Found Advance Directive Response Recorded Date/ Time Advance Directives No September 22 1:49pm Summary Purpose Family History No Family History Records FoundNo Family History Records Found Additional Source Comments Care Teams (unrecognized sec tion and content) Team Status: Active Member Role Status Dates PHYSICIAN NO FAMILY Primary Care Provider Active Team Status: Inactive Member Role Status Dates PHYSICIAN NO FAMILY Primary Care Provider Active Cristina Crooks , DO Emergency Provider Active Goals (unrecognized section and content) Goals may be documented in a n alternate section (unrecognized sect ion and content) No Status Records FoundNo Status Records Found INFORMATION SOURCE (unrecogn ized section and content) DATE CREATED AUTHOR 08/04/2022 [facility] DATE CREATED AUTHOR AUTHOR'S ORGANIZ ATION 12/21/2022 [facility] FOR RECORDS PERTAINING TO PATIENTS WHO ARE OR HAVE BEEN ENROLLED IN A CHEMICAL DEPENDENCY/SUBSTANCEABUSE PROGRAM, SOME INFORMATION MAY BE OMITTED. This clinical summary was aggregated from multiple sources. Caution should be exercised in using it in the provision of clinical care. This summary normalizes information from multiple sources, and as a consequence, information in this document may materially change the coding, format and clinical context of patient data. In addition, data may be omitted in some cases. CLINICAL DECISIONS SHOULD BE BASED ON THE PRIMARY CLINICAL RECORDS. [employer] provides no warranty or guarantee of the accuracy or completeness of information in this document.
== END 2023-02-13 19:19 | disposition left against medical advice (07) ==
PROVIDERS: Nurse Practitioner Family; Emergency Provider Emergency Medicine
DX: R04.0 Epistaxis (principal); F17.210 Nicotine dependence, cigarettes, uncomplicated; Z53.29 Procedure and treatment not carried out because of patient's decision for other reasons
CPT/HCPCS: 30901; 36415; 80048; 80076; 85025; 85610; 85730; 99283